=== PATIENT | female | born 1960 | race Caucasian/White ===

== ENCOUNTER 2018-01-10 19:36 | Emergency (ER) | payer BC, OTHER ==
[2018-01-10] MEDS ORDERED: METOCLOPRAMIDE HCL 10 MG/2 ML VIAL IVP ONE (19:55)
[2018-01-10] MEDS ORDERED: DIPHENHYDRAMINE HCL 50 MG/ML VIAL IVP ONE (19:55)
[2018-01-10] MEDS ORDERED: KETOROLAC 30 MG/ML VIAL IVP ONE (19:55)
[2018-01-10] MEDS ORDERED: 0.9 % SODIUM CHLORIDE 1000ML 1,000 ML IV SCH (20:00)
--- NOTE | 2018-01-10 20:01 | Emergency Department Record ---
History of Present Illness - General Chief Complaint: Headache Migraine Stated Complaint: VERY BAD SOLO AND EAR PRESSURE Source: Patient Mode of Arrival: Ambulatory Limitations: No limitations - History of Present Illness Initial Comments: 57 yo female presents to ED for evaluation of intermittent headache symptoms x 1 month. Patient reports pain over the frontal and adair-orbital regions bilaterally, reports that she has a sinus headache. Patient was seen at [facility] ED and started on Augmentin, stopped after 5 days due to loose stools. Patient then saw her PCP who put her on Omnicef (on day #9 currently) but patient reports that her headache symptoms continue. Patient denies fever or neck stiffness symptoms, does report nausea and decreased oral intake. Patient denies recent imaging of the head or sinuses, reports nasal septal repair 12 years ago. Patient denies focal weakness or change in vision on examination. MD Complaint: Headache Onset/Timin -: Month(s) Onset Description: Gradual Location: Facial Severity: Severe Quality: Aching Consistency: Intermittent Improves With: Nothing Worsens With: None Context: Recent URI Treatments Prior to Arrival: Other - Related Data Home Medications Medication Instructions Recorded Confirmed Last Taken Cetirizine HCl [Zyrtec] 10 mg PO DAILY 01/10/18 01/10/18 Unknown Montelukast Sodium [Singulair] 10 mg PO DAILY 01/10/18 01/10/18 Unknown Propranolol HCl 40 mg PO DAILY 01/10/18 01/10/18 Unknown Zolpidem Tartrate [Ambien Cr] 12.5 mg PO QHS 01/10/18 01/10/18 Unknown Allergies Allergy/AdvReac Type Severity Reaction Status Date / Time No Known Drug Allergies Allergy Verified 01/10/18 20:17 Review of Systems Constitutional: Denies: Chills, Fever, Malaise, Night sweats Eyes: Denies: Eye discharge, Eye pain ENT: Denies: Congestion, Ear pain, Epistaxis Respiratory: Denies: Cough, Dyspnea Cardiovascular: Denies: Chest pain, Dyspnea on exertion Endocrine: Denies: Fatigue, Heat or cold intolerance Gastrointestinal: Reports: Nausea. Denies: Abdominal pain, Vomiting Genitourinary: Denies: Incontinence, Retention Musculoskeletal: Denies: Arthralgia, Back pain Skin: Denies: Bruising, Change in color Neurological: Reports: Headache. Denies: Abnormal gait, Confusion, Seizure Psychiatric: Denies: Anxiety Hematological/Lymphatic: Denies: Anemia, Blood Clots Physical Exam - General General Appearance: Alert, Oriented x3, Cooperative, Mild distress Limitations: No limitations - Head Head exam: Atraumatic, Normocephalic, Normal inspection Head exam detail: Other (Patient reports tenderness over the frontal and adair- orbital regions bilaterally on examination). negative: Abrasion, Contusion, Saha's sign, General tenderness, Hematoma, Laceration - Eye Eye exam: Normal appearance. negative: Conjunctival injection, Periorbital swelling, Periorbital tenderness, Scleral icterus - ENT Ear exam: negative: Auricular hematoma, Auricular trauma Nasal Exam: negative: Active bleeding, Discharge, Dried blood, Foreign body Mouth exam: negative: Drooling, Laceration, Muffled voice, Tongue elevation - Neck Neck exam: Normal inspection. negative: Meningismus, Tenderness - Respiratory Respiratory exam: Normal lung sounds bilaterally. negative: Rales, Respiratory distress, Rhonchi, Stridor - Cardiovascular Cardiovascular Exam: Regular rate, Normal rhythm, Normal heart sounds - GI/Abdominal GI/Abdominal exam: Soft. negative: Rebound, Rigid, Tenderness - Rectal Rectal exam: Deferred - exam: Deferred - Extremities Extremities exam: Normal inspection. negative: Calf tenderness, Pedal edema, Tenderness - Back Back exam: Denies: CVA tenderness (R), CVA tenderness (L) - Neurological Neurological exam: Alert, Normal gait, Oriented X3 - Psychiatric Psychiatric exam: Normal affect, Normal mood - Skin Skin exam: Normal color. negative: Abrasion Type of lesion: negative: abrasion Course - Reevaluation(s) Reevaluation #1: 01/10/18 20:00 Given the duration of symptoms and lack of improvement with treatment for sinusitis, will obtain imaging of the sinuses as well as the brain for further evaluation. Will administer analgesia as well. Reevaluation #2: 01/10/18 21:15 CT imaging is pending at this time. Patient up to the bathroom, reports that her pain symptoms are improved to 5/10 from 04/22. Reevaluation #3: 01/10/18 21:35 CT Brain: No acute process Scattered lucencies, chronic in nature. CT Maxillo-facial bones: Mild chronic inflammatory changes to the maxillary sinuses bilaterally, o/w negative. Patient was updated on all results, appears stable for discharge with outpatient follow-up as she is feeling much better. Disposition Disposition: Discharge Clinical Impression: Acute headache Qualifiers: Headache type: unspecified Intractability: not intractable Qualified Code(s): R51 - Headache Disposition: Home, Self-Care Condition: (2) Stable Instructions: Acute Headache (ED) Additional Instructions: Return to ED if your symptoms worsen or if you have any concerns. Follow-up with your family doctor in 3-5 days as directed. Forms: Patient Portal Access Time of Disposition: 21:39 Quality - Quality Measures Quality Measures: N/A - Blood Pressure Screening Does Patient Have Any of the Following: No Blood Pressure Classification: Hypertensive Reading Systolic Measurement: 176 Diastolic Measurement: 106 Screening for High Blood Pressure: < First Hypertensive BP, F/U Documented > [ G8950] First Hypertensive Follow-up Interventions: Referral to alternative/primary care provider.
--- NOTE | 2018-01-13 13:11 | CT SCAN REPORT ---
EXAM: CT OF THE HEAD WITHOUT CONTRAST HISTORY: HEADACHE AND SINUS PRESSURE FOR ONE WEEK. TECHNIQUE: Routine noncontrast CT examination of the head was performed. Comparison: Same day CT of the paranasal sinuses. FINDINGS: The ventricles and subarachnoid spaces are normal in size for age. Mild to moderate periventricular and subcortical white matter lucencies are scattered in each cerebral hemisphere, relatively symmetrically. These appear most pronounced in the subcortical regions. No other area of abnormally increased or decreased attenuation is noted throughout the brain substance. No abnormal extraaxial fluid collection is seen. The orbits as visualized are unremarkable. The visualized paranasal sinuses and mastoid air cells appear clear. IMPRESSION: 1. NO CT EVIDENCE OF ACUTE MAJOR VESSEL INFARCT, INTRACRANIAL HEMORRHAGE, NOR MASS. 2. MILD TO MODERATE WHITE MATTER LUCENCIES SCATTERED IN EACH CEREBRAL HEMISPHERE. THESE ARE NONSPECIFIC. DIAGNOSTIC CONSIDERATIONS INCLUDE; AREAS OF CHRONIC SMALL VESSEL ISCHEMIA, POST TRAUMATIC/INFLAMMATORY GLIOSIS, THE SEQUELA OF MIGRAINE HEADACHES, THE SEQUELA OF VASCULITIS AND LESS LIKELY A DEMYELINATING PROCESS. JOB NUMBER: [id number] [facility]
--- NOTE | 2018-01-13 14:24 | CT SCAN REPORT ---
EXAM: CT OF THE PARANASAL SINUSES WITHOUT CONTRAST HISTORY: HEADACHE AND SINUS PRESSURE FOR SIX DAYS. TECHNIQUE: Thin collimation CT examination of the paranasal sinuses was performed in the axial plane without intravenous contrast. Coronal and sagittal reformatted images are generated and reviewed. Comparison: Same day noncontrast CT of the head. FINDINGS: There is normal bone mineralization. No lytic or blastic bone lesion. The maxillary sinuses appear somewhat hypoplastic. The paranasal sinuses are otherwise well developed. There is minor mucosal thickening in the superomedial aspects of the maxillary sinuses. The paranasal sinuses are otherwise clear. The ostiomeatal complexes, frontal recesses, and sphenoethmoidal recesses appear patent. No gross osseous nasoseptal deviation is seen. The posterior nasopharynx appears clear. The orbits as visualized are unremarkable. Moderate to advanced hypertrophic degenerative changes of the atlantodental joint are identified. IMPRESSION: MINOR MUCOSAL THICKENING INVOLVING THE MAXILLARY SINUSES CONSISTENT WITH MILD CHRONIC INFLAMMATORY CHANGE. THE PARANASAL SINUSES ARE OTHERWISE CLEAR. JOB NUMBER: [id number] [facility]
== END 2018-01-10 21:53 | disposition home or self-care (01) ==
LOC: ER 19:36
DX: R51 Headache (principal); H57.13 Ocular pain, bilateral
CPT/HCPCS: 70450; 70486; 96374; 96375; 99284; J1200; J1885; J2765; J7030

== ENCOUNTER 2018-01-15 17:26 | Emergency (ER) | payer OTHER ==
--- NOTE | 2018-01-15 17:50 | Emergency Department Record ---
History of Present Illness - General Chief complaint: ENT Stated complaint: RIGHT EAR PAIN Time Seen by Provider: 01/15/18 17:39 Source: Patient, Family Mode of Arrival: Ambulatory Limitations: No limitations - History of Present Illness Initial comments: 57 yo female presents with ongoing sinus pressure and discomfort for 5 weeks. She has been on antibiotics twice. She was in the ED on 01/10/18 and had a HCT and Maxillofacial CT scan performed. She has seen her PCP as well. She states she has pressure in her mid face, maxillary area, and ears. No headache. The right ear is more uncomfortable that the left. She has clear nasal drainage. She has had cough at times. The cough is non productive. She has not seen and ENT. She did have nasal surgery with Dr Vinson about 12 years ago for a deviated septum. Her PCP is out of [place]. She has significant "white coat syndrome" that causes her BP to be elevated and improves once she is home. MD complaint: Ear pain -: Week(s) (5) Location: R ear, L ear, Nose Quality: Aching Consistency: Constant Improves with: None Worsens with: None Associated Symptoms: Cough - Related Data Allergies Allergy/AdvReac Type Severity Reaction Status Date / Time No Known Drug Allergies Allergy Verified 01/10/18 20:17 Review of Systems Constitutional: Denies: Chills, Fever, Malaise, Weakness Eyes: Denies: Eye discharge, Eye pain, Photophobia, Vision change ENT: Reports: Congestion, Ear pain. Denies: Dental pain, Epistaxis, Throat pain Respiratory: Reports: Cough. Denies: Dyspnea, Hemoptysis, Stridor, Wheezes Cardiovascular: Denies: Chest pain, Palpitations, Syncope Endocrine: Denies: Fatigue, Polydipsia, Polyuria Gastrointestinal: Denies: Abdominal pain, Diarrhea, Nausea, Vomiting Genitourinary: Denies: Dysuria Musculoskeletal: Denies: Arthralgia, Back pain, Joint swelling, Myalgia Skin: Denies: Bruising, Change in color, Rash Neurological: Reports: Headache. Denies: Confusion, Numbness, Tingling, Vertigo , Weakness Psychiatric: Reports: Anxiety Hematological/Lymphatic: Denies: Easy bleeding, Easy bruising Past Medical History - SOCIAL HISTORY Smoking Status: Never smoker - RESPIRATORY Hx Respiratory Disorders: Yes Hx Asthma: Yes - CARDIOVASCULAR Hx Cardio Disorders: Yes Comment:: Murmur - NEURO Hx Neuro Disorders: No - GI Hx GI Disorders: No - Hx Genitourinary Disorders: No - ENDOCRINE Hx Endocrine Disorders: No - MUSCULOSKELETAL Hx Musculoskeletal Disorders: No - PSYCH Hx Psych Problems: Yes Hx Anxiety: Yes - HEMATOLOGY/ONCOLOGY Hx Hematology/Oncology Disorders: No Family Medical History Hx Dementia: Father Hx Heart Disease: Mother Physical Exam - General General Appearance: Alert, Oriented x3, Cooperative, No acute distress Limitations: No limitations - Head Head exam: Normal inspection - Eye Eye exam: Normal appearance, PERRL, EOMI, Periorbital tenderness. negative: Conjunctival injection, Nystagmus, Periorbital swelling - ENT ENT exam: Normal exam, Mucous membranes moist, Normal orophraynx, TM's normal bilaterally Ear exam: Normal external inspection Nasal Exam: Normal inspection Mouth exam: Normal external inspection Teeth exam: Normal inspection Throat exam: Normal inspection. negative: Tonsillar erythema, Tonsillomegaly, Tonsillar exudate, R peritonsillar mass, L peritonsillar mass - Neck Neck exam: Normal inspection, Full ROM. negative: Lymphadenopathy - Respiratory Respiratory exam: Normal lung sounds bilaterally. negative: Respiratory distress, Rhonchi, Stridor, Wheezes - Cardiovascular Cardiovascular Exam: Regular rate, Normal rhythm, Normal heart sounds - Rectal Rectal exam: Deferred - exam: Deferred - Extremities Extremities exam: Normal inspection - Neurological Neurological exam: Alert, CN II-XII intact, Normal gait. negative: Motor sensory deficit, Oriented X3, Reflexes normal - Psychiatric Psychiatric exam: Anxious - Skin Skin exam: Dry, Intact, Normal color, Warm Course - Reevaluation(s) Reevaluation #1: 01/15/18 18:42 No acute process on the CXR We discussed at length the need for close follow up with her PCP I do not seen signs of acute infection She has mild nasal mucosal edema with very little drainage Neither ear has signs of infection I strongly recommended seeing her PCP or an ENT in follow up Disposition Disposition: Discharge Clinical Impression: Facial pain Disposition: Home, Self-Care Condition: (1) Good Instructions: Sinusitis (ED) Additional Instructions: Call your doctor tomorrow I recommend discussion with your doctor an ENT referral for further evaluation of your facial pressure and pain discuss the previous ER visit CT scans and today's chest XR with your doctor as your may require follow up studies. You have a possible small nodule in the right lung that will need to be rechecked by your doctor Forms: Patient Portal Access Time of Disposition: 18:45 Quality - Quality Measures Quality Measures: N/A - Blood Pressure Screening Does Patient Have Any of the Following: No Blood Pressure Classification: Hypertensive Reading Systolic Measurement: 196 Diastolic Measurement: 107 Screening for High Blood Pressure: < Pre-Hypertensive BP, F/U Documented > [ G8950] Pre-Hypertensive Follow-up Interventions: Referral to alternative/primary care provider.
--- NOTE | 2018-01-17 19:42 | RADIOLOGY REPORT ---
EXAM: CHEST 2 VIEWS HISTORY: SINUS CONGESTION FOR FIVE WEEKS WITH EAR PAIN AND MILD COUGH. TECHNIQUE: PA and lateral views. COMPARISON: None. FINDINGS: Heart size is normal. Minor linear fibrosis or discoid atelectasis at the right base. Lungs appear somewhat hyperinflated suggesting underlying COPD. No acute alveolar infiltrate is seen. There is questionably an approximately 8 mm nodule in the right mid lung. This could just be some overlapping structures but a follow-up PA and bilateral oblique views in a week or so is suggested to reassess. Comparison to any old films would also be useful in this regard. No pleural effusion or pneumothorax evident. Hypertrophic spurring anteriorly in the spine. IMPRESSION: 1. LUNGS APPEAR HYPERINFLATED SUGGESTING COPD. 2. HYPERTROPHIC SPURRING IN THE SPINE. 3. QUESTIONABLE 8 MM NODULE ON THE RIGHT. RECOMMEND COMPARISON WITH OLD FILMS AND A FOLLOW-UP PA AND BILATERAL OBLIQUE VIEWS IN A WEEK OR SO. JOB NUMBER: [id number] [facility]
== END 2018-01-15 19:01 | disposition home or self-care (01) ==
LOC: ER 17:26
DX: G50.1 Atypical facial pain (principal); J34.89 Other specified disorders of nose and nasal sinuses; H92.01 Otalgia, right ear; R05 Cough
CPT/HCPCS: 71046; 99283